=== PATIENT | female | born 1995 | race Caucasian/White ===

== ENCOUNTER 2016-12-08 12:02 | Emergency (ER) | payer BC ==
--- NOTE | 2016-12-08 13:32 | UC ---
Complaint Female HPI - HPI Summary HPI Summary: 21 female presents today complaining of seeing blood on toilet paper after urination today 12/08/16 prior to arrival in . She states she was recently treated for BV and was on Flagyl that she finished on 11/20/16. On 11/25/16 she had unprotected sex with her boyfriend. She has since been worried about being . Patient is on OCP that she takes very regularly, at the same time everyday, without missing any pills. Patient has been on this pill for the past 5 years. She was seen in [facility] on 12/04/16 where she had a negative urine HCG. Her last menstrual cycle was 11/18/16 and she is not due for her next until 11/15/16. Patient states she feels like she has her period, with crampy lower abdominal pain that she describes as "hunger pains". She admits to being extremely stressed with school just starting back up and being worried she may be . This morning when she noticed the bright red blood upon wiping she became even more anxious. She feels the urine test taken 4 days ago was too early to be accurate and would like another one today. States her menstrual cycle is very regular and she has never experienced any break through bleeding. Denies any other abdominal pain, bladder or bowel dysfunction, nausea , vomiting, burning upon urination, urinary frequency/urgency, fever and chills. She has a history of hemorrhoids however she believes the bleeding is coming from her vagina rather her rectum. Denies pain with BM. LBM was this morning and appeared normal. - History Of Current Complaint Chief Complaint: UCGU Stated Complaint: PERSONAL Time Seen by Provider: 12/08/16 12:14 Hx Obtained From: Patient Hx Last Menstrual Period: 11/18/16 ?: No Onset/Duration: Sudden Onset Severity Initially: Mild Severity Currently: Mild Character: Cramping Aggravating Factor(s): Nothing Alleviating Factor(s): Nothing Associated Signs And Symptoms: Positive: Vaginal Bleeding/Discharge. Negative: Fever, Back Pain, Nausea, Vomiting(# Of Episodes =), Genital Swelling, Genital Blisters - Allergies/Home Medications Allergies/Adverse Reactions: Allergies Allergy/AdvReac Type Severity Reaction Status Date / Time No Known Allergies Allergy Verified 12/08/16 12:27 Home Medications: Home Medications Norgestimate-Ethinyl Estradiol [Tri-Linyah] 1 tab PO DAILY 12/08/16 [History Confirmed 12/08/16] Spironolactone (NF) [Spironolactone 50 MG (NF)] 50 mg PO DAILY 12/08/16 [ History Confirmed 12/08/16] PMH/Surg Hx/FS Hx/Imm Hx Previously Healthy: Yes - Surgical History Surgical History: None - Family History Known Family History: Positive: Unknown - Social History Alcohol Use: Weekly Substance Use Type: None Smoking Status (MU): Never Smoked Tobacco Review of Systems Constitutional: Negative Skin: Negative Eyes: Negative ENT: Negative Respiratory: Negative Cardiovascular: Negative Gastrointestinal: Abdominal Pain - cramping lower abdominal pain, similar to pre -menstraul symptoms Genitourinary: Hematuria - blood on toilet paper Motor: Negative Neurovascular: Negative Musculoskeletal: Negative Neurological: Negative Psychological: Negative All Other Systems Reviewed And Are Negative: Yes Physical Exam Triage Information Reviewed: Yes Appearance: Well-Appearing - anxious, No Pain Distress, Well-Nourished Vital Signs: Initial Vital Signs Temp 98.2 F 12/08/16 12:19 Pulse 97 12/08/16 12:19 Resp 14 12/08/16 12:19 BP 136/88 12/08/16 12:19 Pulse Ox 100 12/08/16 12:19 slightly elevated BP, patient is very anxious. Vital Signs Reviewed: Yes Eyes: Positive: Conjunctiva Clear Neck: Positive: Supple, Nontender Respiratory: Positive: Chest non-tender, Lungs clear, Normal breath sounds Cardiovascular: Positive: RRR, No Murmur, Pulses Normal Abdomen Description: Positive: Nontender, No Organomegaly, Soft. Negative: CVA Tenderness (R), CVA Tenderness (L), Distended, Guarding, McBurney's Point Tenderness, Peritoneal Signs Musculoskeletal Exam: Normal Neurological Exam: Normal Psychological Exam: Normal Skin Exam: Normal Skin: Positive: Other - patient denies any external vaginal abnormalities, such as edema, erythema or discharge other than noticing bright red blood upon urination UC Physical Exam Vital Signs On Initial Exam: Initial Vitals Temp Pulse Resp BP Pulse Ox 98.2 F 97 14 136/88 100 12/08/16 12:19 12/08/16 12:19 12/08/16 12:19 12/08/16 12:19 12/08/16 12:19 Complaint Female Dx - Course Course Of Treatment: Urinalysis and Urine were obtained. Patient had mentioned that at the [facility] they did tell her there was a small amount of blood noted in her urine however no infection. Urinalysis was positive for a significant amount of blood here today. Urine HCG was indeterminate. A blood HCG was obtained, results will be relayed tomorrow. Patient was told to take OTC ibuprofen or midol to help with cramping. She was told at this time to wait out the symptoms and then follow up with her pcp or obgyn in the next 7 days if they persist. is very unlikely at this time due to responsible use of control. seems to be an early/irregular menstraul cycle. patient was very stressed and told that it can be causing the surge of hormones and early cycle. follow-up with obgyn is recommended. u/s not needed at this time after physical exam and reviewing history. - Differential Dx/Diagnosis Differential Diagnosis/HQI/PQRI: Endometriosis, Ovarian Cyst, Pelvic Inflammatory Disease, , Sexually Transmitted Disease, Ureteral Stone, Urinary Tract Infection, Other - menses Provider Diagnoses: early menses, pre-menstraul vaginal bleeding Discharge - Discharge Plan Condition: Stable Disposition: HOME Patient Education Materials: Dysfunctional Uterine Bleeding (ED), Menstruation (ED) Referrals: No Primary Care Phys,NOPCP [Primary Care Provider] - Additional Instructions: Follow-up with your primary care provider, OBGYN or return to if symptoms persist over 5-7 days. Take OTC Aleve, ibuprofen or midol for pain and discomfort. If symptoms worsen or become more painful please seek medical attention promptly. Avoid strenuous exercise over the next couple of days.
[2016-12-08 13:40] VITALS: BP 136/88
== END 2016-12-08 13:40 | disposition home or self-care (01) ==
LOC: UCCORT 12:02
DX: N92.6 Irregular menstruation, unspecified (principal); Z32.02 Encounter for pregnancy test, result negative
CPT/HCPCS: 36415; 81025; 84702; 99201; G0463

== ENCOUNTER 2016-12-18 13:23 | Emergency (ER) | payer BC ==
[2016-12-18 15:21] VITALS: BP 125/79
--- NOTE | 2016-12-18 15:57 | UC ---
Skin Complaint HPI - HPI Summary HPI Summary: SHE THINKS SHE HAS A PERIANAL ABCESS ON THE LEFT CHEEK. SHE HAS HAD IT BEFORE. SHE HAS HAD THE PAIN FOR A COUPLE OF DAYS. [ End ] - History of Current Complaint Chief Complaint: UCSkin Time Seen by Provider: 12/18/16 15:41 Stated Complaint: PERSONAL Hx Obtained From: Patient Hx Last Menstrual Period: 12/16/16 ?: No Onset/Duration: Gradual Onset Onset Severity: Mild Current Severity: Moderate Aggravating: Nothing Alleviating: Nothing - Allergy/Home Medications Allergies/Adverse Reactions: Allergies Allergy/AdvReac Type Severity Reaction Status Date / Time No Known Allergies Allergy Verified 12/18/16 15:21 Review of Systems Constitutional: Negative Skin: Other - abscess Eyes: Negative ENT: Negative Respiratory: Negative Cardiovascular: Negative Gastrointestinal: Negative Genitourinary: Negative Motor: Negative Neurovascular: Negative Musculoskeletal: Negative Neurological: Negative Psychological: Negative All Other Systems Reviewed And Are Negative: Yes PMH/Surg Hx/FS Hx/Imm Hx - Surgical History Surgical History: None - Family History Known Family History: Positive: Unknown - Social History Alcohol Use: Weekly Substance Use Type: None Smoking Status (MU): Never Smoked Tobacco Physical Exam Triage Information Reviewed: Yes Appearance: Well-Appearing, Well-Nourished Vital Signs: Initial Vital Signs Temp 98.3 F 12/18/16 15:15 Pulse 89 12/18/16 15:15 Resp 14 12/18/16 15:15 BP 125/79 12/18/16 15:15 Pulse Ox 100 12/18/16 15:15 Vital Signs Reviewed: Yes Eye Exam: Normal ENT Exam: Normal Dental Exam: Normal Neck exam: Normal Neck: Positive: 1 Respiratory Exam: Normal Cardiovascular Exam: Normal Musculoskeletal Exam: Normal Neurological Exam: Normal Psychological Exam: Normal Skin Exam: Normal Skin: Positive: Other - left inner thigh with small round flesh colored palpable lump that is tender to palpation. 5x5 mm and no erythema. no induration. no discharge. no streaking. Course/Dx - Course Course Of Treatment: Not ready for I&D. She will hot pack the area. Use APAP and NSAIDs and RTO if any concerns. [place] and prefers to be referred that way. - Diagnoses Provider Diagnoses: Infected sebaceous cyst Discharge - Discharge Plan Condition: Good Disposition: HOME Patient Education Materials: Abscess (ED) Referrals: No Primary Care Phys,NOPCP [Primary Care Provider] - Additional Instructions: As we discussed your abscess is not yet ready for incision and drainage. Since this has recurred in the same area more than one time it is advised to have the area evaluated by a general surgeon to consider excision . It is advised to call [facility] with Dr Madrigal, Dr Schroeder and Dr Lemon . [address] [address] Hours of Operation: Wednesday through Wednesday, 8 a.m. to 5 p.m.
== END 2016-12-18 16:12 | disposition home or self-care (01) ==
LOC: UCCORT 13:23
DX: L72.3 Sebaceous cyst (principal)
CPT/HCPCS: 99211; G0463